=== PATIENT | female | born 1955 | race Caucasian/White ===

== ENCOUNTER 2018-08-20 22:53 | Inpatient (IN) | payer MEDICAID, MEDICARE ==
[~2018-08-20] VITALS: Ht 154.9 cm; Wt 88.0 kg
[2018-08-20 23:02] VITALS: BP_SYST 180
[2018-08-21] MEDS ORDERED: LISI20TA PO (00:07)
[2018-08-21] MEDS ORDERED: FURO-150 PO (00:08)
[2018-08-21] MEDS ORDERED: SPIR50TA PO (00:08)
[2018-08-21] MEDS ORDERED: PRO40 PO (00:09)
[2018-08-21] MEDS ORDERED: LEVO100T PO (00:09)
[2018-08-21] MEDS ORDERED: LACT10SO6 PO (00:10)
[2018-08-21] MEDS ORDERED: NEOM500T PO (00:11)
[2018-08-21] MEDS ORDERED: MET10 PO (00:12)
[2018-08-21] MEDS ORDERED: INSU100V SQ (00:20)
[2018-08-21] MEDS ORDERED: PARO10TA85 PO (00:21)
[2018-08-21] MEDS ORDERED: MOM PO (00:22)
[2018-08-21] MEDS ORDERED: ACET-2165 PO (00:23)
[2018-08-21] MEDS ORDERED: IBUP-1968 PO (00:27)
[2018-08-21] MEDS ORDERED: TRAM50TA2 PO (00:27)
[2018-08-21] MEDS ORDERED: FLEETMO RC (00:32)
[2018-08-21 02:26] LABS: ANION GAP 8 (5-15); CALCIUM 8.2 mg/dL (8.4-11.0); CHLORIDE 108 mmol/L (98-107); CREATININE 1.26 mg/dL (0.55-1.30); GLUCOSE 228 mg/dL (70-99); POTASSIUM 4.7 mmol/L (3.5-5.1); SODIUM SERUM 137 mmol/L (136-145); UREA NITROGEN, BLOOD 21 mg/dL (8-21)
[2018-08-21 02:31] LABS: BASOPHILS % (AUTO) 0.4 % (0.0-2.0); EOSINOPHILS # (AUTO) 0.2 K/uL (0.0-0.4); EOSINOPHILS % (AUTO) 2.5 % (0.0-4.0); GFR AFRICAN AMERICAN 55 mL/min (>90); HEMATOCRIT 30.3 % (36-48); HEMOGLOBIN 10.1 g/dL (12.0-16.0); LYMPHOCYTES # (AUTO) 1.3 K/uL (1.0-5.5); LYMPHOCYTES % (AUTO) 19.4 % (20.5-51.5); MEAN CORPUSCULAR HEMOGLOBIN 30 pg (27-31); MEAN CORPUSCULAR HGB CONC 33 % (32-36); MEAN CORPUSCULAR VOLUME 91 fL (79.0-98.0); MONOCYTES # (AUTO) 0.5 K/uL (0.0-1.0); NEUTROPHILS # (AUTO) 4.5 K/uL (1.8-7.7); NEUTROPHILS % (AUTO) 69.7 % (40.0-70.0); PLATELET COUNT (AUTO) 129 K/uL (130-430); RED BLOOD CELL COUNT(AUTO) 3.34 MIL/uL (4.2-6.2); RED CELL DISTRIBUTION WIDTH 15.5 % (9.0-15.0); WHITE BLOOD COUNT (AUTO) 6.5 K/uL (4.8-10.8)
[2018-08-21 02:32] LABS: ALANINE AMINOTRANSFERASE 70 U/L (12-78); ALBUMIN 1.7 g/dL (3.4-4.8); ASPARTATE AMINOTRANSFERASE 99 U/L (10-37); TOTAL BILIRUBIN 0.5 mg/dL (0.0-1.0)
[2018-08-21 02:39] LABS: INR 1.2 (0.8-1.2); PROTHROMBIN TIME 12.5 SECS (9.5-12.5)
[2018-08-21 02:47] LABS: BILIRUBIN,URINE NEGATIVE (NEGATIVE); BLOOD, URINE 1+ (NEGATIVE); CLARITY/URINE CLEAR (CLEAR); COLOR,URINE YELLOW (YELLOW); GLUCOSE,URINE TRACE (NEGATIVE); KETONES,URINE NEGATIVE (NEGATIVE); LEUKOCYTE ESTERASE ,URINE NEGATIVE (NEGATIVE); NITRITE, URINE NEGATIVE (NEGATIVE); PROTEIN URINE 3+ (NEGATIVE); UROBILINOGEN,URINE 0.2 (0.2-1.0)
[2018-08-21 02:52] LABS: ACETAMINOPHEN < 1 ug/mL (1-30); ALCOHOL, BLOOD < 3 mg/dL (<10)
[2018-08-21 02:56] LABS: BARBITURATE, URINE NEGATIVE (NEG <=200); BENZODIAZEPINE, URINE NEGATIVE (NEG <=150); CANNABINOID, URINE NEGATIVE (NEG <=50); COCAINE, URINE NEGATIVE (NEG <=150); METHAMPHETAMINES SCREEN,URINE NEGATIVE (NEG <=500); OPIATE, URINE NEGATIVE (NEG <=100); PHENCYCLIDINE SCREEN,URINE NEGATIVE (NEG <=25); UR TRICYCLIC ANTIDEPRESSANTS NEGATIVE (NEG <=300); URINE AMPHETAMINE NEGATIVE (NEG <=500); URINE METHADONE POSITIVE (NEG <=200); URINE OXYCODONE SCREEN NEGATIVE (NEG <=100); URINE PROPOXYPHENE SCREEN NEGATIVE (NEG <=300)
[2018-08-21] MEDS: LACTULOSE 20 GM/30 ML UDC PO ONE ×2 (03:25→04:14)
[2018-08-21 03:53] LABS: BACTERIA,URINE FEW /HPF (None Seen); WBC,URINE 0-3 /HPF (0-3); YEAST,URINE None Seen /HPF (None Seen)
[2018-08-21 03:54] LABS: MUCUS,URINE None Seen /LPF (None Seen)
[2018-08-21] MEDS ORDERED: DEXTROSE 50% JECT 50 ML DISP.SYRIN IVP PRN (05:15)
[2018-08-21] MEDS ORDERED: NALOXONE HCL 0.4 MG/ML AMP (NARCAN) IVP ONE (05:15)
[2018-08-21] MEDS: D5NS 1,000 ML IV SCH ×3 (06:01→21:49)
[2018-08-21] MEDS: LEVOTHYROXINE SODIUM 0.1 MG TABLET PO SCH (06:01)
[2018-08-21] MEDS: LACTULOSE 20 GM/30 ML UDC GT SCH ×6 (06:01→21:49)
[2018-08-21] MEDS: INSULIN REGULAR, HUMAN 100 UNITS/ML, 10 ML VIAL (novoLIN R) SUBCUT PRN ×3 (06:11→17:30)
[2018-08-21] MEDS ORDERED: NALOXONE HCL 0.4 MG/ML AMP (NARCAN) ONE (07:12)
[2018-08-21 08:00] VITALS: BP_SYST 175
[2018-08-21 10:15] VITALS: BP_SYST 155
[2018-08-21 12:00] VITALS: BP_SYST 149
[2018-08-21] MEDS: hydrALAZINE HCL 20 MG/ML VIAL IVP PRN (14:34)
[2018-08-21 15:30] VITALS: BP_SYST 178
[2018-08-21] MEDS ORDERED: ENALAPRILAT DIHYDRATE 1.25 MG/ML VIAL IVP PRN (19:00)
[2018-08-21 20:00] VITALS: BP_SYST 154
[2018-08-22 00:16] VITALS: BP_SYST 140
[2018-08-22] MEDS: LACTULOSE 20 GM/30 ML UDC GT SCH ×7 (00:36→17:37)
[2018-08-22] MEDS: INSULIN REGULAR, HUMAN 100 UNITS/ML, 10 ML VIAL (novoLIN R) SUBCUT PRN ×4 (00:38→17:42)
[2018-08-22] MEDS: LEVOTHYROXINE SODIUM 0.1 MG TABLET PO SCH (06:06)
[2018-08-22 08:55] VITALS: BP_SYST 146
[2018-08-22] MEDS ORDERED: RIFAXIMIN 550 MG TABLET PO ONE (09:00)
[2018-08-22] MEDS: RIFAXIMIN 550 MG TABLET PO SCH ×2 (09:25→22:47)
[2018-08-22 11:33] VITALS: BP_SYST 102
[2018-08-22] MEDS: D5NS 1,000 ML IV SCH (14:59)
[2018-08-22] MEDS: hydrALAZINE HCL 20 MG/ML VIAL IVP PRN (15:01)
[2018-08-22 16:18] VITALS: BP_SYST 159
[2018-08-22 17:05] LABS: SOURCE/TYPE ,BODY FLUID ASCITES
[2018-08-22 17:06] LABS: BF APPEARANCE UNSPUN HAZY (CLEAR); BODY FLUID SOURCE/ TYPE PARACENTESIS
[2018-08-22 17:07] LABS: BODY FLUID COLOR YELLOW (LT YELLOW); BODY FLUID TOTAL VOLUME 5175 mL
[2018-08-22 17:15] LABS: EOSINOPHIL, BODY FLUID 0 %; LYMPHOCYTES, BODY FLUID 67 %; MONOCYTES,BODY FLUID 22 %; NEUTROPHIL, BODY FLUID 11 %; RBC, BODY FLUID 733 /uL; WBC, BODY FLUID 274 /uL
[2018-08-22 19:05] VITALS: BP_SYST 138
[2018-08-22] MEDS: LACTULOSE 20 GM/30 ML UDC PO SCH (22:48)
[2018-08-22 23:15] LABS: BODY FLUID GLUCOSE 199 mg/dL; BODY FLUID TOTAL PROTEIN 1.9 g/dL
[2018-08-23] MEDS: LACTULOSE 20 GM/30 ML UDC PO SCH ×9 (00:31→23:39)
[2018-08-23] MEDS: INSULIN REGULAR, HUMAN 100 UNITS/ML, 10 ML VIAL (novoLIN R) SUBCUT PRN ×5 (00:44→23:49)
[2018-08-23 00:46] VITALS: BP_SYST 158
[2018-08-23] MEDS: D5NS 1,000 ML IV SCH ×2 (04:44→20:59)
[2018-08-23] MEDS: LEVOTHYROXINE SODIUM 0.1 MG TABLET PO SCH (06:03)
[2018-08-23 08:15] VITALS: BP_SYST 144
[2018-08-23] MEDS: RIFAXIMIN 550 MG TABLET PO SCH ×2 (08:17→20:58)
[2018-08-23 08:26] LABS: ALBUMIN 1.4 g/dL (3.4-4.8); CALCIUM 7.8 mg/dL (8.4-11.0); CREATININE 1.45 mg/dL (0.55-1.30); POTASSIUM 3.7 mmol/L (3.5-5.1); TOTAL BILIRUBIN 0.5 mg/dL (0.0-1.0)
[2018-08-23 08:56] LABS: HEMATOCRIT 32.1 % (36-48); HEMOGLOBIN 10.5 g/dL (12.0-16.0); MEAN CORPUSCULAR VOLUME 92 fL (79.0-98.0); RED BLOOD CELL COUNT(AUTO) 3.47 MIL/uL (4.2-6.2); WHITE BLOOD COUNT (AUTO) 5.7 K/uL (4.8-10.8)
[2018-08-23 08:57] LABS: BASOPHILS % (AUTO) 0.6 % (0.0-2.0); EOSINOPHILS % (AUTO) 3.3 % (0.0-4.0); LYMPHOCYTES # (AUTO) 0.8 K/uL (1.0-5.5); LYMPHOCYTES % (AUTO) 14.9 % (20.5-51.5); MEAN CORPUSCULAR HEMOGLOBIN 30 pg (27-31); MEAN CORPUSCULAR HGB CONC 33 % (32-36); MONOCYTES # (AUTO) 0.5 K/uL (0.0-1.0); MONOCYTES % (AUTO) 8.1 % (1.7-9.3); NEUTROPHILS # (AUTO) 4.1 K/uL (1.8-7.7); NEUTROPHILS % (AUTO) 73.1 % (40.0-70.0); PLATELET COUNT (AUTO) 124 K/uL (130-430); RED CELL DISTRIBUTION WIDTH 16.4 % (9.0-15.0)
[2018-08-23 08:58] LABS: EOSINOPHILS # (AUTO) 0.2 K/uL (0.0-0.4)
[2018-08-23 11:57] VITALS: BP_SYST 111
[2018-08-23 16:09] VITALS: BP_SYST 152
[2018-08-23 20:00] VITALS: BP_SYST 155
[2018-08-24 02:00] VITALS: BP_SYST 127
[2018-08-24] MEDS: LACTULOSE 20 GM/30 ML UDC PO SCH ×3 (02:40→08:21)
[2018-08-24] MEDS: INSULIN REGULAR, HUMAN 100 UNITS/ML, 10 ML VIAL (novoLIN R) SUBCUT PRN ×2 (06:17→11:30)
[2018-08-24] MEDS: LEVOTHYROXINE SODIUM 0.1 MG TABLET PO SCH (06:21)
[2018-08-24] MEDS: RIFAXIMIN 550 MG TABLET PO SCH (08:21)
[2018-08-24 08:29] VITALS: BP_SYST 133
[2018-08-24 12:00] VITALS: BP_SYST 119
[2018-08-24 12:59] VITALS: BP_SYST 119
[2018-08-24] MEDS ORDERED: LACTULOSE 20 GM/30 ML UDC PO SCH (15:00)
== END 2018-08-24 14:43 | DRG 280 ==
LOC: SED 22:53 → SMU 08-21 04:17
PROVIDERS: ADMIT Internal Medicine Hospice and Palliative Medicine; ATTEND Internal Medicine Hospice and Palliative Medicine
PROC: 0W9G3ZZ Drainage of Peritoneal Cavity, Percutaneous Approach (ICD-10-PCS; principal; 2018-08-22)
PROC: 0W9G3ZZ Drainage of Peritoneal Cavity, Percutaneous Approach (ICD-10-PCS; 2018-08-23)
DX: K70.40 Alcoholic hepatic failure without coma (principal); K70.31 Alcoholic cirrhosis of liver with ascites; E44.0 Moderate protein-calorie malnutrition; B19.20 Unspecified viral hepatitis C without hepatic coma; E11.9 Type 2 diabetes mellitus without complications; G89.29 Other chronic pain; I10 Essential (primary) hypertension; Z79.891 Long term (current) use of opiate analgesic; Z79.899 Other long term (current) drug therapy; Z79.84 Long term (current) use of oral hypoglycemic drugs
CPT/HCPCS: 36415; 49083; 70450-TC; 71045; 80053; 80307; 81000-TC; 82042; 82140-TC; 82550-TC; 82947-TC; 82962; 84157-TC; 84484; 85025; 85610-TC; 87081; 89051-TC; 89060-TC; 93005; 99285; C1729; G0480; G0482; J0360; J1815; J2310; J7042